=== PATIENT | female | born 1940 | race Hispanic/Latino ===

== ENCOUNTER 2019-11-15 11:15 | Observation (INO) | payer MEDICARE, OTHER ==
[2019-11-11 15:49] LABS: BASOPHILS % 0.6 % (0.0-1.0); EOSINOPHILS % 0.4 % (0.0-6.0); HEMOGLOBIN 11.6 g/dL (12.0-16.0); LYMPHOCYTES # (AUTO) 2.8 (1.0-3.2); LYMPHOCYTES % 41.9 % (18.0-39.1); MEAN CORPUSCULAR HEMOGLOBIN 26.3 pg (28-32); MEAN CORPUSCULAR HGB CONC 30.5 g/dL (31-35); MEAN CORPUSCULAR VOLUME 86.2 fL (81-99); MONOCYTES # (AUTO) 0.8 (0.2-0.8); MONOCYTES % 12.2 % (4.4-11.3); NEUTROPHILS % 44.6 % (38.7-80.0); PLATELET COUNT 218 x10e3/uL (140-360); RED BLOOD COUNT 4.41 x10e6/uL (3.6-5.1); RED CELL DISTRIBUTION WIDTH 16.2 % (11.7-14.4)
[2019-11-11 15:56] LABS: BILIRUBIN,URINE NEGATIVE (NEGATIVE); CLARITY,URINE CLEAR (CLEAR); COLOR,URINE YELLOW (YELLOW); KETONES,URINE NEGATIVE (NEGATIVE); LEUKOCYTE ESTERASE ,URINE NEGATIVE (NEGATIVE); NITRITE,URINE NEGATIVE (NEGATIVE); PROTEIN,URINE DIPSTICK NEGATIVE (NEGATIVE); URINE UROBILINOGEN 0.2 mg/dL (0.2 - 1)
[2019-11-11 16:30] LABS: ANION GAP 17.8 mmol/L (8-16); CALCIUM 10.1 mg/dL (8.4-10.2); CREATININE, SERUM 1.29 mg/dL (0.57-1.11); POTASSIUM 3.8 mmol/L (3.5-5.1)
[~2019-11-15 11:15] MED LIST: ALPRAZOLAM0.5 MG PO; AMLODIPINE BESYL5 MG PO; ATENOLOL50 MG PO; CHLORDIAZEPOXID25 MG PO; DIOVAN160 MG PO; ESTRADIOL1 MG PO; EXFORGE PO; FAMOTIDINE20 MG PO; FUROSEMIDE40 MG PO; LIPITOR10 MG PO; LORATADINE10 MG PO; LOSARTAN-HCTZ1 EAC2 PO; NORTRIPTYLINE PO; OMEPRAZOLE PO; POTASSIUM CHLO10 ME1 PO; PROGESTERONE100 MG PO; TEKTURNA PO; [UNRECOGNIZED DRUG - OTHER] PO
[2019-11-15] MEDS ORDERED: CEFAZOLIN SOD 1 GM/NS 50ML 100 ML IV ONE (12:22)
[2019-11-15] MEDS ORDERED: PROPOFOL IV EMULSION 10 MG/ML 20 ML VIAL ONE (14:37)
[2019-11-15] MEDS ORDERED: SEVOFLURANE INHAL SOLN 250 ML PEN BTL ONE (14:37)
[2019-11-15] MEDS ORDERED: DEXAMETHASONE SOD PHOS INJ 4 MG/ML VIAL ONE (14:37)
[2019-11-15] MEDS ORDERED: ONDANSETRON HCL INJ 2MG/ML 2ML 2 MG/ML VIAL ONE ×2 (14:37→18:00)
[2019-11-15] MEDS ORDERED: LIDOCAINE HCL 2% LOCAL INJ 5 ML SDV VIAL INJ ONE (14:37)
[2019-11-15] MEDS ORDERED: ONDANSETRON HCL INJ 2MG/ML 2ML 2 MG/ML VIAL IV PRN (16:30)
[2019-11-15] MEDS ORDERED: HYDROMORPHONE 0.2MG/ML-SOD CHL 30ML PCA SYRINGE IV PRN (16:30)
[2019-11-15] MEDS ORDERED: HYDROMORPHONE 1MG/1ML INJ ONE (16:40)
[2019-11-15] MEDS ORDERED: MIDAZOLAM HCL 2 MG/2 ML VIAL ONE (17:38)
[2019-11-15] MEDS ORDERED: FENTANYL CITRATE/PF 100MCG/2 ML INJ ONE (17:38)
[2019-11-15] MEDS ORDERED: METOCLOPRAMIDE HCL 10 MG/2ML VIAL ONE (18:00)
[2019-11-15 20:00] VITALS: BP 151/72
[2019-11-15] MEDS ORDERED: BUPIVACAINE 0.25% 30ML SDV INJ ONE (21:42)
[2019-11-15] MEDS: CEFAZOLIN SOD 1 GM/NS 50ML 50 ML IV SCH (21:42)
[2019-11-16] VITALS: BP 139/62
[2019-11-16] MEDS: SODIUM CHLORIDE 0.9% 1000ML 1,000 ML IV SCH (03:32)
[2019-11-16] MEDS: ACETAMINOPHEN 1000 MG/100 ML IV PRN ×2 (03:40→14:24)
[2019-11-16 04:00] VITALS: BP 120/66
[2019-11-16] MEDS ORDERED: FUROSEMIDE 40 MG TAB PO SCH (04:45)
[2019-11-16] MEDS ORDERED: POTASSIUM CHLORIDE 10MEQ EA PO SCH (04:45)
[2019-11-16] MEDS ORDERED: LEVOTHYROXINE SODIUM 125 MCG TAB PO SCH (06:00)
[2019-11-16] MEDS ORDERED: RIVAROXABAN 10 MG TABLET PO SCH ×2 (06:00→08:00)
[2019-11-16 06:01] LABS: HEMATOCRIT 34.8 % (34.2-44.1)
[2019-11-16] MEDS: CEFAZOLIN SOD 1 GM/NS 50ML 50 ML IV SCH ×2 (06:11→14:25)
[2019-11-16 08:18] VITALS: BP 147/82
[2019-11-16] MEDS ORDERED: FAMOTIDINE 20 MG TAB PO SCH (09:00)
[2019-11-16] MEDS ORDERED: LORATADINE 10 MG TAB PO SCH (09:00)
[2019-11-16] MEDS ORDERED: AMLODIPINE BESYLATE 5 MG TAB PO SCH (09:00)
[2019-11-16 09:16] VITALS: BP 147/82
[2019-11-16] MEDS ORDERED: HYDROCHLOROTHIAZIDE 25 MG TAB PO SCH (09:30)
[2019-11-16] MEDS ORDERED: LOSARTAN POTASSIUM 100 MG TAB PO SCH (09:30)
[2019-11-16] MEDS ORDERED: ALPRAZOLAM 0.5 MG TAB PO SCH ×2 (11:30→21:00)
[2019-11-16 12:00] VITALS: BP 141/80
[2019-11-16 16:31] VITALS: BP 149/73
[2019-11-16] MEDS ORDERED: ATORVASTATIN 10 MG TAB PO SCH (21:00)
== END 2019-11-16 16:51 | disposition home or self-care (01) ==
LOC: OR 11:15 → MED/SURG 16:33
PROVIDERS: ADMIT Specialist; ATTEND Specialist
DX: M17.11 Unilateral primary osteoarthritis, right knee (principal); I12.9 Hypertensive chronic kidney disease with stage 1 through stage 4 chronic kidney disease, or unspecified chronic kidney disease; N18.3 Chronic kidney disease, stage 3 (moderate); F41.9 Anxiety disorder, unspecified; E78.5 Hyperlipidemia, unspecified; E03.9 Hypothyroidism, unspecified; Z11.59 Encounter for screening for other viral diseases; Z01.812 Encounter for preprocedural laboratory examination
CPT/HCPCS: 27447; 36415 ×2; 64447; 71046; 73560; 80048; 81003; 85014; 85018; 85025; 86850; 86900; 86920; 93005; 97116 ×2; 97139; 97162; 97530 ×2; 99251; C1713 ×2; C1776 ×2; G0378 ×2; J0131; J0690 ×2; J1100; J1170; J2001; J2250; J2405 ×2; J2704; J2765; J3010; J7030 ×2; U0002

== ENCOUNTER → 2023-09-29 | Day surgery (SDC) | payer MEDICARE ==
[2023-09-28 14:23] LABS: BASOPHILS % 0.4 % (0.0-1.0); EOSINOPHILS % 0.5 % (0.0-6.0); HEMATOCRIT 36.9 % (34.2-44.1); HEMOGLOBIN 11.5 g/dL (12.0-16.0); LYMPHOCYTES # (AUTO) 2.6 (1.0-3.2); MEAN CORPUSCULAR HEMOGLOBIN 27.6 pg (28-32); MEAN CORPUSCULAR HGB CONC 31.2 g/dL (31-35); MEAN CORPUSCULAR VOLUME 88.5 fL (81-99); MONOCYTES # (AUTO) 0.8 (0.2-0.8); MONOCYTES % 13.6 % (4.4-11.3); NEUTROPHILS # (AUTO) 2.2 (2.1-6.9); NEUTROPHILS % 39.3 % (38.7-80.0); PLATELET COUNT 170 x10e3/uL (140-360); RED BLOOD COUNT 4.17 x10e6/uL (3.6-5.1); WHITE BLOOD COUNT 5.57 x10e3/uL (4.8-10.8)
[2023-09-28 14:31] LABS: ANION GAP 12.1 mmol/L (8-16); CALCIUM 9.2 mg/dL (8.4-10.2); CREATININE, SERUM 1.15 mg/dL (0.57-1.11)
[2023-09-28 14:32] LABS: POTASSIUM 3.1 mmol/L (3.5-5.1)
[~2023-09-29] MED LIST changes: +DEXAMETHASONE SOD PHOS INJ 4 MG/ML SDV ONE; +EVISTA60 MG PO; +FENTANYL CITRATE/PF 100MCG/2 ML INJ ONE; +LABETALOL HCL 5 MG/ML 20ML VIAL ONE; +LIDOCAINE HCL 2% LOCAL 20 ML VIAL ONE; +LIDOCAINE HCL 2% LOCAL INJ 5 ML SDV VIAL INJ ONE; +LIOTHYRONINE SO5 MCG PO; +LOSARTAN-HCTZ1 EAC1 PO; +METRONIDAZOLE500 MG PO; +ONDANSETRON HCL INJ 2MG/ML 2ML 2 MG/ML VIAL ONE; +ONDANSETRON ODT4 MG PO; +PROPOFOL IV EMULSION 10 MG/ML 20 ML VIAL ONE; +SEVOFLURANE INHAL SOLN 250 ML PEN BTL ONE; +SODIUM BICARBO650 MG PO
[2023-09-29] MEDS: LACTATED RINGER'S 1,000 ML ONE (07:39)
[2023-09-29 11:12] VITALS: TEMP 97.9
[2023-09-29] MEDS: FENTANYL CITRATE/PF 100MCG/2 ML INJ ONE (11:31)
[2023-09-29] MEDS: HYDRALAZINE HCL 20 MG/ML VIAL ONE (11:47)
[2023-09-29] MEDS: KETOROLAC TROMETHAMINE 30 MG/ML VIAL ONE (11:51)
[2023-09-29] MEDS: HYDROCODONE/APAP 5MG-325MG TAB ONE (12:05)
[2023-09-29 12:15] VITALS: BP 141/73; PULSE 77; RESP 16; O2SAT 97
== END | disposition home or self-care (01) ==
LOC: OR 07:24
PROVIDERS: ATTEND Specialist
DX: G56.01 Carpal tunnel syndrome, right upper limb (principal); I10 Essential (primary) hypertension; E78.5 Hyperlipidemia, unspecified; K21.9 Gastro-esophageal reflux disease without esophagitis; E03.9 Hypothyroidism, unspecified; F41.9 Anxiety disorder, unspecified; Z01.810 Encounter for preprocedural cardiovascular examination; Z01.812 Encounter for preprocedural laboratory examination; Z01.818 Encounter for other preprocedural examination; Z79.899 Other long term (current) drug therapy
CPT/HCPCS: 29848; 36415; 71046; 80048; 85025; 93005; J0360; J0690; J1100; J1885; J2001 ×2; J2405; J2704; J3010; J3490; J7121